=== PATIENT | female | born 1995 | race Caucasian/White ===

== ENCOUNTER 2018-10-19 22:43 | Emergency (ER) | payer OTHER ==
[2018-10-19 22:54] VITALS: BP 140/82; PULSE 87; TEMP 97.9; BMI 23.9
--- NOTE | 2018-10-20 00:23 | PDOC ---
History of Present Illness - General Chief Complaint: Pain, Acute Stated Complaint: ARM PAIN History Source: Patient Exam Limitations: No Limitations - History of Present Illness Initial Comments: 10/20/18 00:16 Patient is a 23 year old female with no pmhx c/o right arm pain since 8:30pm. 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 States usually get pain in the arm but would resolve on its own without medication. Today the pain has been 10 /10, sharp, throbbing and is hard and tense. States it has never been like this. Patient states that she has tried Motrin, warm compresses but with no relief of symptoms. PMD: In [place] PMHX: as above PSOCHX: neg cig, occ beer, neg drug ALL: NKDA GENERAL/CONSTITUTIONAL: No fever or chills. No weakness. No weight change. HEAD, EYES, EARS, NOSE AND THROAT: No change in vision. No ear pain or discharge. No sore throat. CARDIOVASCULAR: No chest pain or shortness of breath. RESPIRATORY: No cough, wheezing, or hemoptysis. GASTROINTESTINAL: No nausea, vomiting, diarrhea or constipation. No rectal bleeding. GENITOURINARY: No dysuria, frequency, or change in urination. MUSCULOSKELETAL: No joint or muscle swelling or pain. No neck or back pain. SKIN AND BREASTS: No rash or easy bruising. NEUROLOGIC: No headache, vertigo, loss of consciousness, or loss of sensation. PSYCHIATRIC: No depression or anxiety. ENDOCRINE: No increased thirst. No abnormal weight change. HEMATOLOGIC/LYMPHATIC: No anemia, easy bleeding, or history of blood clots. ALLERGIC/IMMUNOLOGIC: No hives or skin allergy. No latex allergy. GENERAL: The patient is awake, alert, and fully oriented, in mild distress. HEAD: Normal with no signs of trauma. EYES: Pupils equal, round and reactive to light, extraocular movements intact, sclera anicteric, conjunctiva clear. ENT: Ears normal, nares patent, oropharynx clear without exudates. Moist mucous membranes. NECK: Normal range of motion, supple without lymphadenopathy, JVD, or masses. LUNGS: Breath sounds equal, clear to auscultation bilaterally. No wheezes, and no crackles. HEART: Regular rate and rhythm, normal S1 and S2 without murmur, rub. ABDOMEN: Soft, nontender, normoactive bowel sounds. No guarding, no rebound. No masses. EXTREMITIES: Normal range of motion, no edema. No clubbing or cyanosis. No cords, erythema, or tenderness. NEUROLOGICAL: Cranial nerves II through XII grossly intact. Normal speech, normal gait. PSYCH: Normal mood, normal affect. SKIN: Warm, Dry, normal turgor, no rashes, Tender swelling to the inner aspect of right arm Past History - Past Medical History Allergies/Adverse Reactions: Allergies Allergy/AdvReac Type Severity Reaction Status Date / Time No Known Allergies Allergy Verified 10/19/18 22:49 Cardiac Disorders: No CVA: No COPD: No Other medical history: "Ball of veins in (R) upper arm" dx by exploratory surgery 2012 - Suicide/Smoking/Psychosocial Hx Smoking History: Never smoked Information on smoking cessation initiated: No Hx Alcohol Use: No Drug/Substance Use Hx: No *Physical Exam - Vital Signs Last Vital Signs Temp Pulse Resp BP Pulse Ox 97.9 F 87 20 140/82 99 10/19/18 22:49 10/19/18 22:49 10/19/18 22:49 10/19/18 22:49 10/19/18 22:49 ED Treatment Course - RADIOLOGY Radiology Studies Ordered: Category Date Time Status DUPLEX VASCUL US-1 ARM [US] Stat Ultrasound 10/20/18 00:12 Ordered Medical Decision Making - Medical Decision Making 10/20/18 00:16 Patient is a 23 year old female with no pmhx c/o right arm pain since 8:30pm. 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 States usually get pain in the arm but would resolve on its own without medication. Today the pain has been 10 /10, sharp, throbbing and is hard and tense. States it has never been like this. Doppler right arm rule out DVT. Patient refusing pain medications at this time. 10/20/18 01:21 Patient Full Name: DARSHAN MATOS Patient Accession No: [id number] Patient : 1995 Reason for Exam: r/o dvt h/o avm Referring Physician: Patient Name: CARLO SEXTON THIS IS A PRELIMINARY REPORT FROM [facility] DATE OF SERVICE: 2018-10-20 00:25:59 IMAGES: 36 EXAM: DUPLEX VASCULAR US-1 ARM HISTORY: Swelling. History of AV malformation. COMPARISON: None. FINDINGS: There is no DVT in the right upper extremity. Vascular mass in the upper inner arm in the area of swelling may represent the known AV malformation. IMPRESSION: No DVT. Suspected AV malformation. THIS DOCUMENT HAS BEEN ELECTRONICALLY SIGNED Obie Lucero MD 10/20/2018 01:03 BRETT Ott Please call Imaging Makeup Artistry Instructor [phone] with questions. INTERPRETING RADIOLOGIST: Sumanth Lucero MD Electronically Signed: October 20, 2018 01:04AM EDT I discussed the physical exam findings, ancillary test results and final diagnoses with the patient. I answered all of the patient's questions. The patient was satisfied with the care received and felt comfortable with the discharge plan and treatment plan. The Patient agrees to follow up with the primary care physician within 24-72 hours. *DC/Admit/Observation/Transfer Diagnosis at time of Disposition: AVM (arteriovenous malformation) - Discharge Dispostion Disposition: HOME Condition at time of disposition: Stable - Referrals - Patient Instructions Printed Discharge Instructions: DI for Arm Pain Additional Instructions: Your Discharge Instructions: You must call primary care physician within 24 hours to arrange follow-up. Return to the Emergency Department with any new, persistent or worsening symptoms, for fever, chills, SOB, dizziness or any other concerning changes that may occur. Follow-up with vascular surgeon. - Post Discharge Activity Forms/Work/School Notes: Back to Work
== END 2018-10-20 01:26 | disposition home or self-care (01) ==
LOC: JER 22:43
DX: Q27.39 Arteriovenous malformation, other site (principal)
CPT/HCPCS: 93971; 99282-25